=== PATIENT | male | born 1945 | race African-American/Black ===

== ENCOUNTER → 2020-08-22 | Outpatient (CLI) | payer MEDICARE ==
--- NOTE | 2020-08-22 16:21 | KCIC ---
EXAM: Renal sonogram. HISTORY: Acute renal failure. TECHNIQUE: Sonographic imaging of the kidneys and bladder was performed. COMPARISON: None. FINDINGS: The kidneys are normal in size. There is a 3.3 cm simple appearing cyst within the lower po le the right kidney. No solid renal lesion is seen. There is no hydronephrosis. The prevoid bladder v olume is 82 cc. There is no post void bladder residual. IMPRESSION: 1. 3.3 cm simple appearing right renal cyst. Follow-up is not routinely performed for simple cysts. 2. Otherwise, unremarkable kidneys. 3. No post void bladder residual. Electronically signed by: Dennise Garza MD (08/22/2020 4:19 PM) [id number]
== END ==
LOC: KCIC US 15:03
PROVIDERS: ATTEND Internal Medicine Nephrology
DX: N17.9 Acute kidney failure, unspecified (principal); N28.1 Cyst of kidney, acquired
CPT/HCPCS: 76770